=== PATIENT | female | born 1970 | race Caucasian/White ===

== ENCOUNTER → 2017-04-16 | Outpatient (CLI) | payer OTHER ==
[~2017-04-16] MED LIST: NEBI5 PO
== END | disposition home or self-care (01) ==
LOC: LAB EV 13:22
DX: N39.0 Urinary tract infection, site not specified (principal)
CPT/HCPCS: 87086

== ENCOUNTER → 2017-09-22 | Outpatient (CLI) | payer OTHER | END | disposition home or self-care (01) | LOC: LAB SHORT 16:00 → LAB 16:00 | PROVIDERS: Obstetrics & Gynecology | DX: Z01.419 Encounter for gynecological examination (general) (routine) without abnormal findings (principal) | CPT/HCPCS: 87624; G0123 ==

== ENCOUNTER 2018-12-12 19:59 | Emergency (ER) | payer OTHER ==
[~2018-12-12] VITALS: Ht 167.6 cm; Wt 83.0 kg
[2018-12-12] MEDS ORDERED: CYCL10 PO (21:17)
== END 2018-12-12 21:53 | disposition home or self-care (01) ==
LOC: ER 19:59
DX: S33.5XXA Sprain of ligaments of lumbar spine, initial encounter (principal); V53.6XXA Passenger in pick-up truck or van injured in collision with car, pick-up truck or van in traffic accident, initial encounter; Z88.8 Allergy status to other drugs, medicaments and biological substances; Z79.899 Other long term (current) drug therapy; I10 Essential (primary) hypertension
CPT/HCPCS: 72100; 99284-25

== ENCOUNTER → 2019-06-07 | Outpatient (CLI) | payer OTHER ==
[~2019-06-07] MED LIST changes: +CYCL10 PO
[2019-06-07 15:45] LABS: BASOPHILS ABSOLUTE AUTO 0.06 K/mm3 (0.00-0.23); BASOPHILS PERCENT AUTO 1 % (0-2); EOSINOPHILS ABSOLUTE AUTO 0.07 K/mm3 (0.00-0.68); EOSINOPHILS PERCENT AUTO 2 % (0-6); Hematocrit 45.6 % (33.0-51.0); Hemoglobin 14.6 g/dL (11.5-16.0); IMMATURE GRAN ABSOLUTE AUTO 0.01 K/mm3 (0.00-0.10); IMMATURE GRAN PERCENT AUTO 0 % (0-1); LYMPHOCYTES ABSOLUTE AUTO 1.73 K/mm3 (0.84-5.20); LYMPHOCYTES PERCENT AUTO 36 % (21-46); MONOCYTES ABSOLUTE AUTO 0.41 K/mm3 (0.16-1.47); MONOCYTES PERCENT AUTO 9 % (4-13); Mean Corpuscular HGB 28.3 pg (26.0-34.0); Mean Corpuscular Volume 89 fL (80-100); Mean Platelet Volume 10.4 fL (9.1-12.4); NEUTROPHILS ABSOLUTE AUTO 2.47 K/mm3 (1.96-9.15); NEUTROPHILS PERCENT AUTO 52 % (41-73); Platelet Count 267 K/mm3 (150-400); RDW Coefficient Variation 11.8 % (11.7-14.2); Red Blood Cell Count 5.15 M/mm3 (3.80-5.20); White Blood Cell Count 4.75 K/mm3 (4.00-11.30)
[2019-06-07 15:59] LABS: Anion Gap 2 mmol/L (6-16); Blood Urea Nitrogen 15 mg/dL (8-24); Bun/Creatinine Ratio 18.4 (12.0-20.0); CO2, Blood 28 mmol/L (21-32); Calcium, Blood 9.2 mg/dL (8.5-10.1); Chloride, Blood 107 mmol/L (98-108); Creatinine, Blood 0.82 mg/dL (0.40-1.00); Glomerular Filtration Rate >60 (60-); Glucose, Blood 125 mg/dL (70-99); Potassium, Blood 4.4 mmol/L (3.5-5.5); Sodium, Blood 137 mmol/L (136-145)
== END | disposition home or self-care (01) ==
LOC: LAB SHORT 14:00 → LAB 14:00
PROVIDERS: Hospitalist
DX: R53.83 Other fatigue (principal); R06.02 Shortness of breath
CPT/HCPCS: 80048; 85025; 85651

== ENCOUNTER → 2021-04-22 | Outpatient (CLI) | payer OTHER | END | disposition home or self-care (01) | LOC: LAB SHORT 09:25 | DX: L02.32 Furuncle of buttock (principal) | CPT/HCPCS: 87070; 87077; 87147; 87186; 87205 ==

== ENCOUNTER 2022-12-16 13:41 | Emergency (ER) | payer BC ==
[~2022-12-16] VITALS: Ht 167.6 cm; Wt 90.7 kg
[2022-12-16 14:43] LABS: BASOPHILS ABSOLUTE AUTO 0.03 K/mm3 (0.00-0.23); BASOPHILS PERCENT AUTO 1 % (0-2); EOSINOPHILS PERCENT AUTO 0 % (0-6); Hematocrit 38.8 % (33.0-51.0); Hemoglobin 13.2 g/dL (11.5-16.0); IMMATURE GRAN ABSOLUTE AUTO 0.02 K/mm3 (0.00-0.10); IMMATURE GRAN PERCENT AUTO 0 % (0-1); LYMPHOCYTES ABSOLUTE AUTO 0.38 K/mm3 (0.84-5.20); LYMPHOCYTES PERCENT AUTO 8 % (21-46); MONOCYTES ABSOLUTE AUTO 0.49 K/mm3 (0.16-1.47); MONOCYTES PERCENT AUTO 10 % (4-13); Mean Corpuscular HGB 28.1 pg (26.0-34.0); Mean Corpuscular Volume 83 fL (80-100); Mean Platelet Volume 9.4 fL (9.1-12.4); NEUTROPHILS ABSOLUTE AUTO 3.98 K/mm3 (1.96-9.15); NEUTROPHILS PERCENT AUTO 81 % (41-73); Platelet Count 166 K/mm3 (150-400); RDW Coefficient Variation 11.9 % (11.7-14.2); RDW Standard Deviation 35.8 fL (35.1-46.3); Red Blood Cell Count 4.69 M/mm3 (3.80-5.20)
[2022-12-16 15:07] LABS: Albumin, Blood 2.8 g/dL (3.4-5.0); Albumin/Globulin Ratio 0.7 (0.8-1.8); Bilirubin, Total 0.3 mg/dL (0.1-1.0); Bun/Creatinine Ratio 9.9 (12.0-20.0); Calcium, Blood 9.6 mg/dL (8.5-10.1); Creatinine, Blood 1.41 mg/dL (0.40-1.00); Globulin, Blood 3.9 g/dL (2.2-4.0); Total Protein, Blood 6.7 g/dL (6.4-8.2)
[2022-12-16 19:30] VITALS: BP 146/69
[2022-12-16] MEDS ORDERED: Ibuprofen600 MG PO (21:53)
[2022-12-16] MEDS ORDERED: ACET500 PO (21:53)
[2022-12-16] MEDS ORDERED: ONDA4ODT MM (21:53)
[2022-12-16 22:24] LABS: Source, Urine Clean Catch
[2022-12-16 22:50] LABS: Bilirubin, Urine Neg (Neg); Blood, Urine 3+ (Neg); Glucose Qualitative, Urine Neg (Neg); Ketones, Urine Neg (Neg); Leukocyte Esterase, Urine Neg (Neg); Nitrite, Urine Neg (Neg); Protein, Urine 3+ (Neg); Urobilinogen, Urine NORM (Normal)
[2022-12-16 22:56] LABS: Appearance, Urine Hazy (Clear); Color, Urine Yellow (P-Yellow)
[2022-12-16 22:58] LABS: Amorphous Light (0-Heavy); Bacteria Few /hpf; Granular Casts 0-2 /lpf (0); Red Blood Cells, Urine 0-2 /hpf (0-2); Squamous Epithelial Cells Mod /hpf (Few)
== END 2022-12-16 22:33 | disposition home or self-care (01) ==
LOC: ER 13:41
PROVIDERS: Emergency Medicine; Student in an Organized Health Care Education/Training Program
DX: U07.1 COVID-19 (principal); Z88.8 Allergy status to other drugs, medicaments and biological substances; Z79.899 Other long term (current) drug therapy; I10 Essential (primary) hypertension
CPT/HCPCS: 71045; 80053; 81001; 82550; 85025; 87086; 96361; 96374; 96375; 96376; 99284-25; J1200; J1885; J2405; J7030

== ENCOUNTER → 2023-01-06 | Outpatient (CLI) | payer BC ==
[~2023-01-06] MED LIST changes: +ACET500 PO; +Ibuprofen600 MG PO; +ONDA4ODT MM
[2023-01-07 14:59] LABS: Bun/Creatinine Ratio 13.8 (12.0-20.0); Calcium, Blood 9.9 mg/dL (8.5-10.1); Creatinine, Blood 0.95 mg/dL (0.40-1.00); Potassium, Blood 4.1 mmol/L (3.5-5.5)
== END | disposition home or self-care (01) ==
LOC: LAB 10:40 → LAB SHORT 10:40
PROVIDERS: Hospitalist
DX: N17.0 Acute kidney failure with tubular necrosis (principal)
CPT/HCPCS: 80048

== ENCOUNTER 2024-01-25 11:35 | Observation (INO) | payer BC ==
[~2024-01-25] VITALS: Ht 167.6 cm; Wt 91.3 kg
[2024-01-25 12:08] LABS: BASOPHILS ABSOLUTE AUTO 0.05 K/mm3 (0.00-0.23); BASOPHILS PERCENT AUTO 1 % (0-2); EOSINOPHILS ABSOLUTE AUTO 0.04 K/mm3 (0.00-0.68); EOSINOPHILS PERCENT AUTO 1 % (0-6); Hematocrit 41.1 % (33.0-51.0); Hemoglobin 14.2 g/dL (11.5-16.0); IMMATURE GRAN ABSOLUTE AUTO 0.03 K/mm3 (0.00-0.10); IMMATURE GRAN PERCENT AUTO 1 % (0-1); LYMPHOCYTES ABSOLUTE AUTO 2.27 K/mm3 (0.84-5.20); LYMPHOCYTES PERCENT AUTO 47 % (21-46); MONOCYTES ABSOLUTE AUTO 0.36 K/mm3 (0.16-1.47); MONOCYTES PERCENT AUTO 8 % (4-13); Mean Corpuscular HGB 28.2 pg (26.0-34.0); Mean Corpuscular HGB Conc 34.5 g/dL (31.5-36.5); Mean Corpuscular Volume 82 fL (80-100); Mean Platelet Volume 9.2 fL (9.1-12.4); NEUTROPHILS ABSOLUTE AUTO 2.08 K/mm3 (1.96-9.15); NEUTROPHILS PERCENT AUTO 43 % (41-73); Platelet Count 254 K/mm3 (150-400); RDW Coefficient Variation 11.9 % (11.7-14.2); Red Blood Cell Count 5.04 M/mm3 (3.80-5.20); White Blood Cell Count 4.83 K/mm3 (4.00-11.30)
[2024-01-25 12:33] LABS: Albumin, Blood 3.8 g/dL (3.4-5.0); Bilirubin, Total 0.4 mg/dL (0.1-1.0); Bun/Creatinine Ratio 23.5 (12.0-20.0); Calcium, Blood 10.2 mg/dL (8.5-10.1); Creatinine, Blood 0.72 mg/dL (0.40-1.00); Globulin, Blood 3.7 g/dL (2.2-4.0); Potassium, Blood 3.9 mmol/L (3.5-5.5); Total Protein, Blood 7.5 g/dL (6.4-8.2)
[2024-01-25] MEDS ORDERED: Nitroglycerin 0.4 MG SUBL SL ONE (15:15)
[2024-01-25] MEDS ORDERED: Aspirin 81 MG Chew PO ONE (15:15)
[2024-01-25] MEDS ORDERED: Nitroglycerin 1 INCH/GM PKT TOP ONE (16:05)
[2024-01-25] MEDS ORDERED: Labetalol HCL 5 MG/ML 4ML Injection (Single Dose) IV PRN (17:55)
[2024-01-25] MEDS ORDERED: Morphine Sulfate 4 MG/1 ML Injection IV PRN (17:55)
[2024-01-25] MEDS ORDERED: Ondansetron HCl 2 MG / ML 2ML Vial IV PRN (18:00)
[2024-01-25] MEDS ORDERED: NEBI5 PO (18:01)
[2024-01-25 18:43] LABS: Anti-Xa UFH, PHA Monitoring <0.10 IU/mL; International Normalized Ratio 0.97; Prothrombin Time Results 10.4 Sec (9.7-11.5)
[2024-01-25] MEDS ORDERED: Heparin Sodium 5000 Units/ML 1ML MDV IV ONE (18:50)
[2024-01-25] MEDS ORDERED: Heparin Sodium,Porcine/0.5 NS 500 ML IV SCH (18:50)
[2024-01-25] MEDS ORDERED: Nitroglycerin 1 INCH/GM PKT TOP SCH (20:00)
[2024-01-25] MEDS ORDERED: Carvedilol 3.125 MG Tab PO SCH (21:00)
[2024-01-25] MEDS ORDERED: FLU VACC TS2024-25(6MOS UP)/PF 45 MCG/0.5 ML SYRINGE IM ONE (21:00)
[2024-01-25 22:06] VITALS: BP 170/103
[2024-01-25] MEDS ORDERED: AMLO5 PO (22:12)
[2024-01-25 22:25] VITALS: BP 163/95
--- NOTE | 2024-01-25 22:43 | NUR ---
ARRIVAL TO PCU AFTER RECEIVING REPORT FROM [facility] TETRYL SCREEN OPERATOR, PATIENT TRANSFERRED TO PCU AT APPROX 2200. PATIENT ALERT AND ORIENTED X4. COMMUNICATES NEEDS EFFECTIVELY. PERRLA. MOVES ALL EXTREMITIES EQUALLY. IS A RN. INDEPENDENTLY TRANSFERRED FROM [facility] TO BED. TELEMETRY SHOWING SINUS 60s-70s. HTN NOTED, SBP 160s-170s. NITRO PASTE TO R UPPER CHEST. DENIES CHEST PAIN, PRESSURE AT THIS TIME. ORDERED COREG ADMINISTERED PER EMAR. HEPARIN GTT INFUSING PER EMAR. IVF INFUSING. ON ROOM AIR, SATs >90%. RR EVEN, UNLABORED. DENIES SHORTNESS OF BREATH. CALL LIGHT IN REACH.
[2024-01-25 23:14] VITALS: BP 142/88
[2024-01-25] MEDS ORDERED: NS 1,000 ML IV SCH (23:30)
[2024-01-26] VITALS (7 sets, daily range): BP systolic 126–150; BP diastolic 77–94
[2024-01-26 02:06] LABS: Hematocrit 40.1 % (33.0-51.0); Hemoglobin 13.5 g/dL (11.5-16.0); Mean Corpuscular HGB 27.8 pg (26.0-34.0); Mean Corpuscular HGB Conc 33.7 g/dL (31.5-36.5); Mean Corpuscular Volume 83 fL (80-100); Platelet Count 242 K/mm3 (150-400); RDW Coefficient Variation 11.9 % (11.7-14.2); RDW Standard Deviation 35.8 fL (35.1-46.3); Red Blood Cell Count 4.86 M/mm3 (3.80-5.20); White Blood Cell Count 5.31 K/mm3 (4.00-11.30)
[2024-01-26 02:23] LABS: Magnesium, Blood 2.1 mg/dL (1.6-2.4)
[2024-01-26] MEDS ORDERED: Clarify Drug Order XX ONE (03:00)
[2024-01-26 03:32] LABS: Albumin, Blood 3.4 g/dL (3.4-5.0); Albumin/Globulin Ratio 1.1 (0.8-1.8); Bilirubin, Total 0.6 mg/dL (0.1-1.0); Bun/Creatinine Ratio 18.7 (12.0-20.0); Calcium, Blood 9.4 mg/dL (8.5-10.1); Creatinine, Blood 0.8 mg/dL (0.40-1.00); Globulin, Blood 3.1 g/dL (2.2-4.0); Potassium, Blood 3.6 mmol/L (3.5-5.5); Total Protein, Blood 6.5 g/dL (6.4-8.2)
--- NOTE | 2024-01-26 04:46 | NUR ---
SHIFT SUMMARY NO ACUTE EVENTS SINCE ARRIVAL TO PCU. PATIENT SLEPT T/O NIGHT, EASILY AROUSABLE WITH VERBAL STIMULI. INDEPENDENT IN ROOM. COMMUNICATES NEEDS EFFECTIVELY. TELEMETRY SHOWING SINUS 60s-70s. BP IMPROVED SINCE COREG ADMINISTRATION PER EMAR. SBP 120s-140s. MAP >65. DENIES CHEST PAIN, PRESSURE AT REST. DOES REPORT OCCASIONAL MILD CHEST PRESSURE WITH ACTIVITY - NONRADIATING, EASES WITH REST. NITRO PASTE REMAINS IN PLACE R UPPER CHEST. CARDIOLOGY CONSULT PLACED VIA ANSWERING SERVICE - NPO SINCE MIDNIGHT. REMAINS ON ROOM AIR, SATs >90%. RR EVEN, UNLABORED. DENIES SHORTNESS OF BREATH. VOIDING. IVF AND HEPARIN GTT INFUSING PER EMAR. CALL LIGHT IN REACH. WILL CONTINUE TO MONITOR AND REPORT TO ONCOMING RN.
--- NOTE | 2024-01-26 07:54 | NUR ---
NURSING PCU DAYSHIFT: Assumed care of pt at approx 0700. A/O, very pleasant, cooperative w/care. Denies any current general pain/discomfort. Skin intact w/no breakdown noted. Ambulates independently and w/o difficulty. Tele in place, NSR w/occ PVC, SBP 150's while laying flat, c/o LCW pressure/discomfort which radiates to L shoulder and L jaw which has improved since nitro paste placement, trace BLE edema (R>L). L/S cta t/o, denies dyspnea, occ dry/M[employer]AGE [employer] cough, O2 sat upper 90's on RA. Abd SNT, BT+, voiding w/o difficulty. PIV x2, hep gtt infusing at 15 u/kg/hr (21.9 mls/hr), NS infusing at 75mls/hr. No s/s of acute distress at this time. Pt remains NPO until seen by cardiology. Experienced some dizziness while transitioning to sitting position, VS re-evaluated w/SBP increasing to 180's and HR >100, symptoms improved w/o intervention. Pt denies any current needs, plan of care discussed. Awaiting rounding from PMD and rehabilitation teacher, monitor for changes.
[2024-01-26] MEDS ORDERED: Dose Adjust by Pharmacy XX STA (08:26)
[2024-01-26] MEDS ORDERED: Aspirin 325 MG Tab PO ONE (08:45)
[2024-01-26] MEDS ORDERED: Aspirin 81 MG Chew PO SCH (09:00)
[2024-01-26] MEDS ORDERED: AmLODIPine Besylate 5 MG Tab PO SCH (09:00)
[2024-01-26] MEDS ORDERED: Atorvastatin 40 MG Tab PO SCH (09:00)
[2024-01-26] MEDS ORDERED: Midazolam HCl 1MG / ML 2ML Vial ONE (10:28)
[2024-01-26] MEDS ORDERED: NS 0 ML IV ONE (10:28)
[2024-01-26] MEDS ORDERED: FentaNYL Citrate 50 MCG/ML 2 ML Injection ONE (10:28)
[2024-01-26] MEDS ORDERED: NS 1,000 ML IV ONE ×2 (10:30→10:33)
[2024-01-26] MEDS ORDERED: Verapamil HCL 2.5 MG/ML 2ML Injection ONE (10:32)
[2024-01-26] MEDS ORDERED: Heparin Sodium 1000 Units/ML 10ML MDV ONE (10:32)
[2024-01-26] MEDS ORDERED: NS 250 ML IV ONE (10:33)
[2024-01-26] MEDS ORDERED: Nitroglycerin 2 MG/20 ML BTL ONE (10:33)
[2024-01-26 11:29] LABS: CHOL/HDL RATIO 4.1; Cholesterol 177 mg/dL (50-200); HDL Cholesterol 43 mg/dL (>39); Low Density Lipoprotein Chol 85 mg/dL (0-110); Triglycerides 246 mg/dL (30-160); Very Low Density Lipoprot Chol 49 mg/dL (6-32)
[2024-01-26] MEDS ORDERED: Atropine Sulfate 0.1 MG/ML 10ML SYR ONE (11:29)
--- NOTE | 2024-01-26 13:17 | NUR ---
PATIENT TO HEART CENTER: Pt xfer via bed to HC accompanied by staff x2 at approx 1040. Returned to room at 1200, awake and alert. R radial site w/TR band and wrist board in place. Site stable w/no bleed/hematoma noted, will begin deflation at approx 1345. Nitro paste removed as per d/o. Post procedure vs per unit process. BP improved since a.m. Cath report reviewed, awaiting cardiology to discuss plan of care w/pt. Family remains at bedside, cont to monitor.
[2024-01-26] MEDS ORDERED: ATOR40TA PO (16:16)
[2024-01-26] MEDS ORDERED: CARV3.125 PO (16:16)
[2024-01-26] MEDS ORDERED: ASPI81CH PO (16:16)
[2024-01-26] MEDS ORDERED: Isosorbide Mono30 MG PO (16:17)
--- NOTE | 2024-01-26 16:22 | NUR ---
NURSING PCU DISCHARGE SUMMARY: Recovered site w/o difficulty, band removed at 1500. Seen by PMD this afternoon, telephone conference w/pt and care team including cardiology, ok'd for discharge home. Rx's faxed to [facility], post angio instructions provided, follow up cardiology appointment scheduled. Pt denies any questions, will escort from unit via ambulation per pt request.
== END 2024-01-26 16:55 | disposition home or self-care (01) ==
LOC: ER 11:35 → PCU 11:36 → ER 22:08 → PCU 22:18
PROVIDERS: Nurse Practitioner Acute Care; Physician Assistant; Student in an Organized Health Care Education/Training Program; ADMIT Internal Medicine
DX: I25.110 Atherosclerotic heart disease of native coronary artery with unstable angina pectoris (principal); I10 Essential (primary) hypertension; E28.2 Polycystic ovarian syndrome; Z79.899 Other long term (current) drug therapy; Z88.8 Allergy status to other drugs, medicaments and biological substances
CPT/HCPCS: 36415; 71046; 76937; 80053; 80061; 83690; 83735; 83880; 84484; 85025; 85027; 85520; 85610; 85730; 93005; 93010; 93306; 93458; 99152; 99153; 99285-25; A9270; C1769; C1894; G0378; J0461; J1644; J2250; J3010; J7030; J7050; Q9967